=== PATIENT | female | born 1945 | race Caucasian/White ===

== ENCOUNTER 2017-01-19 09:53 | Emergency (ER) | payer MEDICARE, OTHER ==
[~2017-01-19] VITALS: Wt 96.0 kg
[~2017-01-19 09:53] MED LIST: ALBU8.5H5 IH; ESOM40CA PO; GLYB5TAB3 PO; IPRA4AER IH; blood pressure med; januvia; lexapro; singulair
[2017-01-19] MEDS ORDERED: ONDANSETRON 4 MG INJ IV STA ×2 (10:00→13:37)
[2017-01-19] MEDS ORDERED: morphine 4 MG/ML VIAL IV STA ×2 (10:00→13:37)
[2017-01-19] MEDS ORDERED: SOD CHLORIDE 0.9% 1,000 ML IV STA (10:00)
[2017-01-19] MEDS ORDERED: IOHEXOL 300MG/ML 150 ML BTL ONE (11:17)
[2017-01-19] MEDS ORDERED: SOD CHLORIDE 0.9% 100 ML ONE (11:17)
--- NOTE | 2017-01-19 12:38 | ERD ---
ER Documentation Chief Complaint Chief Complaint r. sided pain HPI This is a very pleasant 71-year-old female with a past medical history of non- insulin-dependent diabetes mellitus and hypertension. The patient presented to the emergency department with right flank pain that has been present for the past 4 days. The patient states that the pain has been persistent but will change in intensity. She states there is no alleviating or exacerbating factors to the pain. Several hours prior to arrival the pain began to radiate to the right lower quadrant. She denies any frequency urgency or dysuria. No polyuria or polydipsia. No fevers or shaking or chills. No recent travel or prolonged immobilization. No swelling of the lower extremities. No chest pain or pressure that radiates to the neck arm back or jaw. She took an aspirin prior to arrival with no improvement of the pain. She denies any saddle anesthesia. She placed a heating pad on the right flank region as well but there is no improvement of her symptoms. She denies any changes in her bladder or bowel frequency. Her past surgical history includes colon resection 4 years prior to arrival roughly 18 inches secondary to diverticulosis and a total abdominal hysterectomy. Her primary care physician is Dr. Haskins ROS All systems reviewed and are negative except as per history of present illness. Medications Home Meds Reported Medications [januvia] No Conflict Check 08/31/14 [lexapro] No Conflict Check 08/31/14 Albuterol Sulfate* (Albuterol Sulfate* HFA) 8.5 Gm Hfa.aer.ad, 2 PUFF IH Q4H Y for WHEEZING AND SOB, EA 08/31/14 Albuterol/Ipratropium* (Combivent Respimat*) 20-100 Mcg/Inh - 4 Gm Aer.w.adap, 1 PUFF IH QID, INH 08/31/14 [blood pressure med] No Conflict Check 08/31/14 [singulair] No Conflict Check 08/31/14 Esomeprazole Mag Trihydrate (Nexium) 40 Mg Capsule.dr, 40 MG PO DAILY, CAP 08/31/14 Glyburide* (Glyburide*) 5 Mg Tablet, 5 MG PO DAILY, TAB 08/31/14 Allergies Allergies: Coded Allergies: No Known Allergy (Unverified , 08/31/14) PMhx/Soc History of Surgery: Yes (colon resection, left arm fx with plate) Anesthesia Reaction: No Hx Neurological Disorder: Yes (vertigo,) Hx Respiratory Disorders: Yes (asthma) Hx Psychiatric Problems: Yes (hx depression) Hx Miscellaneous Medical Probl: No Hx Alcohol Use: Yes (socially) Hx Substance Use: No Hx Tobacco Use: No Physical Exam Vitals Vital Signs Date Time Temp Pulse Resp B/P Pulse Ox O2 Delivery O2 Flow Rate FiO2 01/19/17 09:56 98.2 73 20 178/112 96 Physical Exam Constitutional:Well-developed. Well-nourished. HEENT:Normocephalic. Atraumatic.Pupils were equal round reactive to light. Moist mucous membranes.No tonsillar exudates. Neck: No nuchal rigidity. No lymphadenopathy. No posterior cervical spine tenderness or step-offs. Respiratory: Not using accessory muscles of respiration.Lungs were clear to auscultation bilaterally. No rhonchi. No rales. No wheezing. Cardiovascular: Regular rate regular rhythm.No murmurs. No rubs were appreciated.S1, S2 normal. Distal pulses are palpable 2+ bilaterally. GI: Abdomen was soft. Mild tenderness in the right lower quadrant specifically over McBurney's point and psoas sign, obturator sign were negative. Non Distended. No pulsatile abdominal masses or bruits. No rebound. No guarding. Bowel sounds were present and normal. Right CVA tenderness. Muscle skeletal: Full range of motion of both the upper and lower extremities bilaterally.Normal muscle tone.No assymetrical calf tenderness or swelling. Skin: No petechia, no purpura. No lesions on the palms or the soles of the feet. No maculopapular rash. NEURO: Patient was alert, awake, orientated x3.No facial droop. Gait observed and normal with no ataxia.Speech had regular rate and rhythm. No focal neurological deficits. Result Diagram: 01/19/17 1010 01/19/17 1010 Results 24 hrs Laboratory Tests Test 01/19/17 10:10 01/19/17 11:45 White Blood Count 7.310^3/ul Red Blood Count 4.3510^6/ul Hemoglobin 14.1g/dl Hematocrit 42.8% Mean Corpuscular Volume 98.4fl Mean Corpuscular Hemoglobin 32.4pg Mean Corpuscular Hemoglobin Concent 32.9g/dl Red Cell Distribution Width 13.5% Platelet Count 09124^3/UL Mean Platelet Volume 11.4fl Neutrophils % 51.4% Lymphocytes % 36.3% Monocytes % 6.8% Eosinophils % 4.4% Basophils % 1.0% Nucleated Red Blood Cells % 0.0/100WBC Neutrophils # 3.810^3/ul Lymphocytes # 2.710^3/ul Monocytes # 0.510^3/ul Eosinophils # 0.310^3/ul Basophils # 0.110^3/ul Nucleated Red Blood Cells # 0.010^3/ul Prothrombin Time 13.0Sec Prothrombin Time Ratio 1.0 INR International Normalized Ratio 0.98 Activated Partial Thromboplast Time 27.1Sec Sodium Level 140mmol/L Potassium Level 4.2mmol/L Chloride Level 101mmol/L Carbon Dioxide Level 29mmol/L Anion Gap 14 Blood Urea Nitrogen 15mg/dl Creatinine 0.90mg/dl Glucose Level 203mg/dl Calcium Level 9.8mg/dl Total Bilirubin 0.3mg/dl Direct Bilirubin 0.00mg/dl Indirect Bilirubin 0.3mg/dl Aspartate Amino Transf (AST/SGOT) 28IU/L Alanine Aminotransferase (ALT/SGPT) 36IU/L Alkaline Phosphatase 68IU/L Troponin I < 0.012ng/ml Total Protein 8.0g/dl Albumin 4.2g/dl Globulin 3.80g/dl Albumin/Globulin Ratio 1.10 Amylase Level 49U/L Lipase 22U/L Urine Color STRAW Urine Clarity CLEAR Urine pH 6.0 Urine Specific [place] 1.008 Urine Ketones NEGATIVEmg/dL Urine Nitrite NEGATIVEmg/dL Urine Bilirubin NEGATIVEmg/dL Urine Urobilinogen NEGATIVEmg/dL Urine Leukocyte Esterase NEGATIVELeu/ul Urine Hemoglobin NEGATIVEmg/dL Urine Glucose NEGATIVEmg/dL Urine Total Protein NEGATIVEmg/dl Current Medications Medications (Trade) Dose Ordered Sig/Mel Route PRN Reason Start Time Stop Time Status Last Admin Dose Admin Sodium Chloride (NS) 1,000 ml @ 1,000 mls/hr Q1H STAT IV 01/19/17 10:00 01/19/17 10:59 DC 01/19/17 10:41 Morphine Sulfate (morphine) 4 mg ONCE STAT IV 01/19/17 10:00 01/19/17 10:02 DC 01/19/17 10:41 Ondansetron HCl (Zofran Inj) 4 mg ONCE STAT IV 01/19/17 10:00 01/19/17 10:02 DC 01/19/17 10:41 Iohexol 150 ml 150 ml STK-MED ONCE .ROUTE 01/19/17 11:17 01/19/17 11:18 DC Sodium Chloride (NS) 100 ml @ ud STK-MED ONCE .ROUTE 01/19/17 11:17 01/19/17 11:18 DC Morphine Sulfate (morphine) 4 mg ONCE STAT IV 01/19/17 13:37 01/19/17 13:38 Ondansetron HCl (Zofran Inj) 4 mg ONCE STAT IV 01/19/17 13:37 01/19/17 13:38 Procedures/MDM This patient presented to the emergency department with abdominal pain and was seen and evaluated by myself. My differential diagnosis included but was not limited to abdominal aortic aneurysm, appendicitis, pancreatitis, perforated peptic ulcer, perforated viscus, Boerhaaves syndrome or visceral pain such as diverticulitis, DKA, esophagitis, hepatitis or bowel obstruction. The patient was placed on a radiographer cardiac catheterization, continuous pulse oximetry, and IV access was established by nursing staff. The patient received intravenous morphine and Zofran for analgesia control. This did completely resolve her pain I obtained a urinalysis and there is no evidence of urinary tract infection. Obtained a 12-lead EKG tracing to rule out atypical myocardial infarction. 12 Lead EKG tracing ordered and reviewed by myself showed: Normal sinus rhythm of 70 bpm and no arrhythmia. MN interval normal. QRS duration normal. No ST segment elevation. RSR prime pattern in V1 V2 consistent with an incomplete right bundle branch block. T-wave inversion in lead V1 V2 No ST segment depression. No changes consistent with acute ischemia. I did obtain a CT scan of the patient's abdomen reviewed by myself and the radiologist and indicated the followin. Atherosclerosis. 2. Prior sigmoid colon surgery. 3. Supraumbilical midline abdominal wall hernia containing only omental fat. No herniated bowel. 4. Degenerative changes of the spine. 5. Otherwise unremarkable CT scan of the abdomen and pelvis. Observation Note: Time: 4 hours Family Hx: No Hypertension Evaluation: Multiple exams showed improving symptoms and no evidence of cauda equina syndrome abdominal aortic aneurysm or other acute life-threatening etiology at this time. I did explain to the patient that I did not have an exact cause of the etiology of the patient's right flank pain and abdominal pain but she did have significant improvement in the emergency department after given IV opiates and Toradol. She felt comfortable being discharged home and will follow up on an outpatient basis with her PCP Dr. Haskins. Departure Diagnosis: Primary Impression: Flank pain Condition: LORETA Stack Jan 19, 2017 12:38
--- NOTE | 2017-01-19 13:05 | RADRPT ---
PROCEDURE: CT Abdomen and Pelvis with contrast. CLINICAL INDICATION: Abdomen and pelvis pain. Right-sided pain. TECHNIQUE: CT scan of the abdomen and pelvis with contrast was performed. The patient was scanned following the uncomplicated intravenous administration of 100 cc of Omnipaque-300. Coronal and sag ittal reformatted images were obtained from the axial source images. Images were reviewed on a high- resolution PACS workstation. Total exam DLP is 1170.74 mGy-cm. CTDIvol is 22.41 mGy. One or more of the following dose reduction techniques were used: Automated exposure control, adjustment of the mA and/or kV according to patient size, use of iterative reconstruction technique. COMPARISON: None. FINDINGS: The lung bases are normal. There is no pleural effusion. The liver is normal in size and attenuation. There is no focal hepatic lesion. The gallbladder and bile ducts are normal. The spleen is normal in size. There is no focal splenic lesion. Both adrenals are normal with no enlargement or mass. The pancreas is unremarkable with no mass or evidence of pancreatitis. Both kidneys demonstrate normal contrast enhancement. There is no renal mass or hydronephrosis. The abdominal aorta is not dilated. Calcification is present in the aorta consistent with atheroscle rosis There is no retroperitoneal lymphadenopathy or mass. There is no pelvic lymphadenopathy or mass. The bladder and distal ureters are normal. The periappendiceal region is unremarkable with no evidence of appendicitis. The appendix is well se en and appears normal. There are surgical priscila in the sigmoid colon. The bowel and mesentery are otherwise normal. There is a supraumbilical midline abdominal wall hernia containing only omental fat. There is no herniate d bowel. There is no free fluid or free gas. There are degenerative changes of the spine. The osseous structures are otherwise unremarkable with no fracture or lytic lesion. IMPRESSION: 1. Atherosclerosis. 2. Prior sigmoid colon surgery. 3. Supraumbilical midline abdominal wall hernia containing only omental fat. No herniated bowel. 4. Degenerative changes of the spine. 5. Otherwise unremarkable CT scan of the abdomen and pelvis. RPTAT: QQ .David Reeves MD, MD Date Time Electronically viewed and signed by .David Reeves MD, MD on 01/19/2017 13:05 .R/
[2017-01-19] MEDS ORDERED: KETOROLAC 30 MG INJ IV STA (13:38)
[2017-01-19] MEDS ORDERED: DOCU-144 PO (13:41)
[2017-01-19] MEDS ORDERED: HYDR-906 PO (13:41)
[2017-01-19 14:45] VITALS: BP 150/79; PULSE 66; RESP 20; TEMP 98.3
== END 2017-01-19 14:56 | disposition home or self-care (01) ==
LOC: E/R 09:53
DX: R10.31 Right lower quadrant pain (principal); J45.909 Unspecified asthma, uncomplicated; I10 Essential (primary) hypertension; E11.9 Type 2 diabetes mellitus without complications; Z79.84 Long term (current) use of oral hypoglycemic drugs
CPT/HCPCS: 74177; 80053; 81003; 82150; 83690; 84484; 85025; 85610; 85730; 93005; 96374; 96375; 99285; J1885; J2270; J2405; J7030; Q9967